=== PATIENT | female | born 2000 | race Caucasian/White ===

== ENCOUNTER 2021-01-09 14:13 | Outpatient (CLI) | payer BC ==
[2021-01-09 15:11] LABS: BASOPHILS % (AUTO) 0.4 % (0-1); EOSINOPHILS # (AUTO) 0.1 X10'3 (0-0.9); HEMATOCRIT 43.3 % (35.0-45.0); HEMOGLOBIN 14.2 g/dl (12.0-16.0); LYMPHOCYTES # (AUTO) 1.2 X10'3 (1.1-4.8); LYMPHOCYTES % (AUTO) 18.4 % (21-51); MEAN CORPUSCULAR HGB CONC 32.7 g/dL (33.0-36.5); MEAN CORPUSCULAR VOLUME 79.3 FL (78-98); MEAN PLATELET VOLUME 7.6 FL (7.4-10.4); MONOCYTES # (AUTO) 0.7 X10'3 (0-0.9); MONOCYTES % (AUTO) 9.7 % (2-12); NEUTROPHILS # (AUTO) 4.7 X10'3 (1.8-7.7); NEUTROPHILS % (AUTO) 70.5 % (42-75); PLATELET COUNT 300 X10'3 (140-440); RED BLOOD COUNT 5.46 X10'6 (4.20-5.60); RED CELL DISTRIBUTION WIDTH 14.9 % (11.5-14.5); WHITE BLOOD COUNT 6.7 X10'3 (4.5-11.0)
[2021-01-09 15:26] LABS: ALANINE AMINOTRANSFERASE 27 U/L (12-78); ALBUMIN 4.1 G/DL (3.4-5.0); ALBUMIN/GLOBULIN RATIO 0.9 (1.1-1.5); ALKALINE PHOSPHATASE 72 IU/L (20-180); ANION GAP 11 (8-16); ASPARTATE AMINO TRANSFERASE 24 U/L (10-37); BILIRUBIN,TOTAL 0.5 MG/DL (0.1-1.0); BLOOD UREA NITROGEN 10 MG/DL (7-18); BUN/CREATININE RATIO 10.8 (6.6-38.0); CALCIUM 9.1 MG/DL (8.5-10.1); CHLORIDE 104 MMOL/L (99-107); CREATININE 0.93 MG/DL (0.40-0.90); GLUCOSE 66 MG/DL (70-104); POTASSIUM 3.6 MMOL/L (3.5-5.1); SODIUM 143 MMOL/L (135-145); TOTAL CARBON DIOXIDE 28.5 MMOL/L (24-32); TOTAL PROTEIN 8.5 G/DL (6.4-8.2); eGFR 77 ML/MIN
[2021-01-09 15:37] LABS: PARTIAL THROMBOPLASTIN TIME 29 SECONDS (22-32)
== END 2021-01-09 23:59 | disposition home or self-care (01) ==
LOC: LAB 14:13 → EDBD 14:13 → LAB 23:59
DX: Z01.812 Encounter for preprocedural laboratory examination (principal)
CPT/HCPCS: 36415; 80053; 80307; 85025; 85610; 85730

== ENCOUNTER 2021-07-06 11:51 | Emergency (ER) | payer BC, OTHER ==
[~2021-07-06] VITALS: Ht 167.6 cm; Wt 56.8 kg
[2021-07-06 15:11] VITALS: BP 126/81
== END 2021-07-06 15:25 | disposition home or self-care (01) ==
LOC: ER 11:52
DX: R00.0 Tachycardia, unspecified (principal); Z20.822 Contact with and (suspected) exposure to COVID-19; R07.89 Other chest pain; R06.02 Shortness of breath; R50.9 Fever, unspecified; F41.9 Anxiety disorder, unspecified
CPT/HCPCS: 71045; 87635; 93005; 99285; C9803